=== PATIENT | male | born 1995 | race Caucasian/White ===

== ENCOUNTER 2018-01-31 11:04 | Emergency (ER) | payer OTHER ==
[2018-01-31] MEDS: cloNIDine HCL 0.1 MG TABLET PO (12:50)
[2018-01-31] MEDS: LORazepam 1 MG TABLET PO (12:51)
== END 2018-01-31 13:15 | disposition home or self-care (01) ==
LOC: ER 11:04
DX: F11.23 Opioid dependence with withdrawal (principal); T40.2X6A Underdosing of other opioids, initial encounter; Z91.138 Patient's unintentional underdosing of medication regimen for other reason; Y92.89 Other specified places as the place of occurrence of the external cause
CPT/HCPCS: 99283